=== PATIENT | female | born 1950 | race Two or more races ===

== ENCOUNTER 2020-10-14 12:48 | Emergency (ER) | payer OTHER ==
[~2020-10-14] VITALS: Ht 160 cm; Wt 78.9 kg
[2020-10-14] MEDS ORDERED: AVAPRO150 MG (14:02)
[2020-10-14] MEDS ORDERED: ARIMIDES (14:02)
[2020-10-14] MEDS ORDERED: GLUMETZA1000 MG (14:02)
== END 2020-10-14 17:37 | disposition home or self-care (01) ==
LOC: ER 12:48
DX: R07.89 Other chest pain (principal)